=== PATIENT | female | born 1985 | race Caucasian/White ===

== ENCOUNTER 2017-05-31 17:54 | Emergency (ER) | payer SELFPAY ==
[~2017-05-31] VITALS: Ht 162.6 cm; Wt 55.0 kg
[~2017-05-31 17:54] MED LIST: NORC10TA2 PO; WALKER STANDARD
[2017-05-31 17:55] VITALS: BP 126/77; PULSE 91; RESP 14; TEMP 98.5; O2SAT 99
--- NOTE | 2017-05-31 18:20 | PD ---
HPI Chief Complaint: Skin Problem Time Seen by Provider: 18:20 Travel History International Travel<30 days: No Contact w/Intl Traveler<30days: No Traveled to known affect area: No History of Present Illness HPI 31-year-old female presents emergency Department with complaint of left hand pain and swelling since yesterday. Says she works in an [employer] shop and is constantly getting cuts and scrapes. Denies IV drug use. She says she has 2 blisters on the palmar aspect of her left hand which she thinks are infected. Reports history of MRSA. Has not taken any medication or tried any treatments to alleviate her symptoms. Denies fever, vomiting. Denies paresthesias, loss of sensation to her affected extremity. Reports decreased range of motion at the MCP joint of her fingers secondary to pain and swelling. Pain is aggravated with movement of her hand and palpation. Symptoms are moderate in severity. Has no known allergies. No other medical complaints. No other modifying factors or associated signs and symptoms. 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)) Psychiatric: Yes (ANXIETY/ DEPRESSION) Reproductive: No Respiratory: No Migraines: No Radiation Therapy: No Renal Failure: No Seizures: No Sickle Cell Disease: No Sleep Apnea: No Thyroid Disease: No Ulcer: No ?: Not Menopausal: No : 2 Para: 2 Past Surgical History Abdominal Surgery: Yes (LAP ALBARO) AICD: No Arteriovenous Shunt: No Body Medical Devices: HARDWARE RIGHT LEG/ THIGH/ ANKLE/ TROCANTOR Cardiac Surgery: No Ear Surgery: No Endocrine Surgery: No Eye Surgery: No Genitourinary Surgery: No Gynecologic Surgery: No Insulin Pump: No Joint Replacement: No Oral Surgery: No Pacemaker: No Thoracic Surgery: No Social History Alcohol Use: Yes (occassionally) Tobacco Use: Yes (1/2 PPD) Substance Use: Yes (HX ETOH ABUSE, ivdu) Allergies-Medications (Allergen,Severity, Reaction): Coded Allergies: *MDRO Multi-Drug Resistant Organism (Verified Adverse Reaction, Unknown, 05/31/17) MRSA finger wound 06/2015 Reported Meds & Prescriptions Reported Meds & Active Scripts Active Ibuprofen 800 Mg Tab 800 Mg PO Q6HR PRN Clindamycin (Clindamycin HCl) 150 Mg Cap 450 Mg PO Q6H 10 Days Review of Systems Except as stated in HPI: all other systems reviewed are Neg Physical Exam Narrative GENERAL: Well-nourished, well-developed female patient, in no acute distress; afebrile, nontoxic-appearing SKIN: Warm and dry. Palmar aspect of left hand with 2 blisters noted surrounded by erythema, edema which extends to the ventral aspect of the hand; decreased range of motion at the MCP joint of the fingers; fingers with sensory intact; sensory second cap refill; no drainage noted. Left upper extremity is supple and non-tense with 2+ radial pulses and sensory intact. No lymphangitis noted. HEAD: Atraumatic. Normocephalic. EYES: Pupils equal and round. No scleral icterus. No injection or drainage. ENT: Mucosa pink and moist. Airway patent. NECK: Trachea midline. CARDIOVASCULAR: Regular rate. RESPIRATORY: No accessory muscle use. GASTROINTESTINAL: Flat. MUSCULOSKELETAL: No obvious deformities. No clubbing. No cyanosis. No edema. NEUROLOGICAL: Awake and alert. Oriented 3. No obvious cranial nerve deficits. Motor grossly within normal limits. Normal speech. PSYCHIATRIC: Appropriate mood and affect; insight and judgment normal. Data Data Last Documented VS Vital Signs Date Time Temp Pulse Resp B/P (MAP) Pulse Ox O2 Delivery O2 Flow Rate FiO2 05/31/17 17:55 98.5 91 14 126/77 (93) 99 Orders Orders Hand, Complete ([id number]) (05/31/17 18:18) Clindamycin Inj (Cleocin Inj) (05/31/17 18:30) Ketorolac Inj (Toradol Inj) (05/31/17 18:30) MDM Medical Decision Making Medical Screen Exam Complete: Yes Emergency Medical Condition: Yes Medical Record Reviewed: Yes Differential Diagnosis Cellulitis, osteomyelitis, infected blister Narrative Course 31-year-old female with cellulitis of the left hand to the palmar and ventral aspect at the area of the MCP joints of the second through fifth fingers. Patient has history of MRSA. Denies IV drug use. Patient does have range of motion at the joints. I will x-ray the hand to rule out osteomyelitis. Toradol and clindamycin 600 mg IM administered in the ER. 190: Left hand x-ray concludes No plain film findings of osteomyelitis. Clindamycin, ibuprofen prescribed for home. Instructed patient to follow up with hand. Instructed patient to follow up with primary care provider. Patient verbalizes understanding and agreement with treatment plan. Patient is medically cleared and stable for discharge. Discussed reasons to return to the emergency department. Patient agrees with treatment plan. The patients vital signs are stable and the patient is stable for outpatient follow-up and treatment. Patient discharged home, stable and in no acute distress. Diagnosis Primary Impression: Cellulitis of left hand Referrals: Hand Surgeon Primary Care Physician Patient Instructions: Cellulitis (ED), General Instructions Additional Instructions: Complete full course of antibiotics Keep area clean and dry Ibuprofen or Tylenol as directed and as needed for pain and inflammation Follow-up with primary care provider Return to emergency department immediately with worsening of symptoms Med/Other Pt SpecificInfo: Prescription(s) given Scripts Ibuprofen (Ibuprofen) 800 Mg Tab 800 MG PO Q6HR Y for PAIN, #40 TAB 0 Refills Prov: Jacey Biswas 05/31/17 Clindamycin (Clindamycin) 150 Mg Cap 450 MG PO Q6H for Infection for 10 Days, #120 CAP 0 Refills Prov: Jacey Biswas 05/31/17 Disposition: 01 DISCHARGE HOME Condition: Stable Jacey Biswas May 31, 2017 18:20
[2017-05-31] MEDS ORDERED: KETOROLAC TROMETHAMINE 60 MG/2 ML (IM) VIAL IM ONE (18:30)
[2017-05-31] MEDS ORDERED: CLINDAMYCIN PHOS 600 MG/4 ML VIAL IM ONE (18:30)
[2017-05-31] MEDS ORDERED: IBUP800T23 PO (18:32)
[2017-05-31] MEDS ORDERED: CLIN1CAP5 PO (18:32)
--- NOTE | 2017-05-31 18:42 | RADRPT ---
EXAM DATE/TIME: 05/31/2017 18:30 [facility] COMPARISON: No previous studies available for comparison. INDICATIONS : Left hand inflammation after small cuts. MEDICAL HISTORY : None. SURGICAL HISTORY : 5th digit surgery 2 years ago from fracture. ENCOUNTER: Initial ACUITY: 2 days PAIN SCORE: 9/10 LOCATION: Left hand. FINDINGS: There is no bony destruction or periosteal reaction to suggest osteomyelitis. Postsurgical changes ar e present with fusion across the fifth distal interphalangeal joint. Bony mineralization is normal. CONCLUSION: 1. No plain film findings of osteomyelitis. If there is necessity for further evaluation contrast-enh anced MRI is recommended. Onesimo Rivera MD on May 31, 2017 at 18:39 Board Certified Radiologist. This report was verified electronically.
== END 2017-05-31 19:39 | disposition home or self-care (01) ==
LOC: NEPK 17:54
DX: L03.114 Cellulitis of left upper limb (principal); F17.200 Nicotine dependence, unspecified, uncomplicated; Z86.14 Personal history of Methicillin resistant Staphylococcus aureus infection; Z86.59 Personal history of other mental and behavioral disorders; Z87.39 Personal history of other diseases of the musculoskeletal system and connective tissue; Z86.69 Personal history of other diseases of the nervous system and sense organs
CPT/HCPCS: 73130; 96372; 99284; J1885